=== PATIENT | female | born 1980 | race Caucasian/White ===

== ENCOUNTER → 2021-07-12 | Day surgery (SDC) | payer BC ==
[~2021-07-12] MED LIST: AMLODIPINE BESY10 MG PO; LEVOTHYROXINE112 MCG PO; LO LOESTRIN FE1 EACH PO; MIDAZOLAM HCL 2 MG/2 ML VIAL ONE; PROPOFOL IV EMULSION 10 MG/ML 20 ML VIAL ONE
[2021-07-12 19:00] VITALS: BP 128/85
== END | disposition home or self-care (01) ==
LOC: OR 13:50
PROVIDERS: ATTEND Internal Medicine Gastroenterology
DX: K21.9 Gastro-esophageal reflux disease without esophagitis (principal); K29.50 Unspecified chronic gastritis without bleeding; B96.81 Helicobacter pylori [H. pylori] as the cause of diseases classified elsewhere; K20.90 Esophagitis, unspecified without bleeding; K44.9 Diaphragmatic hernia without obstruction or gangrene; Z71.3 Dietary counseling and surveillance; Z71.89 Other specified counseling; I10 Essential (primary) hypertension; E03.9 Hypothyroidism, unspecified; Z88.0 Allergy status to penicillin; Z01.810 Encounter for preprocedural cardiovascular examination; Z01.812 Encounter for preprocedural laboratory examination; Z20.822 Contact with and (suspected) exposure to COVID-19; Z79.899 Other long term (current) drug therapy; Z68.26 Body mass index [BMI] 26.0-26.9, adult; Z86.16 Personal history of COVID-19
CPT/HCPCS: 43239; 81025; 93005; C9113; J2250; J2704; U0002